=== PATIENT | male | born 1990 | race Caucasian/White ===

== ENCOUNTER 2019-11-06 17:45 | Inpatient (IN) ==
[2019-11-06 18:29] LABS: Basophils # 0.1 K/mcL (0.0-0.2); Basophils % 0.9 %; Eosinophils # 0.3 K/mcL (0.0-0.6); Eosinophils % 4.4 %; Hematocrit 43.1 % (37.5-50.1); Immature Granulocytes % 0.4 % (0-4); Lymphocytes # 2.4 K/mcL (0.6-4.6); Lymphocytes % 42.7 %; Mean Corpuscular HGB Conc 32.5 g/dL (31.6-35.5); Mean Corpuscular Hemoglobin 30.8 pg (28.0-33.3); Mean Corpuscular Volume 94.7 fL (83.0-100.0); Mean Platelet Volume 9.9 fL (9.4-12.4); Monocytes # 0.5 K/mcL (0.0-1.3); Monocytes % 8.4 %; Neutrophils # 2.5 K/mcL (1.6-8.9); Platelet Count 314 K/mcL (140-400); Red Blood Count 4.55 M/mcL (4.19-5.50); Red Cell Distribution Width 12.6 % (11.5-14.5); Segmented Neutrophils % 43.2 %; White Blood Count 5.7 K/mcL (4.3-11.1)
[2019-11-06 18:38] LABS: Bilirubin,Urine Negative (Negative); Blood,Urine Negative (Negative); Clarity,Urine Clear (Clear); Color,Urine Yellow (Yellow); Glucose,Urine (UA) Normal (Normal); Ketones,Urine Negative (Negative); Leukocyte Esterase,Urine Negative (Negative); Nitrite,Urine Negative (Negative); Protein,Urine Negative (Neg-Trace); Specific Gravity,Urine 1.012 (1.010-1.025); Urobilinogen,Urine Normal (Normal)
[2019-11-06 18:49] LABS: Acetaminophen < 10 mcg/mL (10-20); BUN/Creatinine Ratio 14 (6-26); Blood Urea Nitrogen 11 mg/dL (6-20); Calcium 9.3 mg/dL (8.6-10.3); Carbon Dioxide 27 mEq/L (23-29); Chloride 105 mEq/L (98-107); Ethanol < 10 mg/dL (Less than 10); Glucose 59 mg/dL (70-105); Osmolality,Calculated 283 (280-300); Potassium 3.9 mEq/L (3.5-5.1); Salicylate < 2.5 mg/dL (15.0-30.0); Sodium 138 mEq/L (136-145); eGFR For African Americans > 60 (> 60); eGFR For Non-African Americans > 60 (> 60)
[2019-11-06 18:53] LABS: Amphetamine Screen,Urine Negative ng/mL (Cutoff=1000); Barbiturate Screen,Urine Negative ng/mL (Cutoff=200); Benzodiazepines Screen,Urine Negative ng/mL (Cutoff=200); Cannabinoid Screen,Urine Positive ng/mL (Cutoff = 50); Cocaine Screen,Urine Negative ng/mL (Cutoff= 300); Opiate Screen,Urine Negative ng/mL (Cutoff=300); Phencyclidine Screen,Urine Negative ng/mL (Cutoff=25)
[2019-11-06] MEDS ORDERED: Nicotine 14 MG PATCH.TD24 TD ONE (19:00)
[2019-11-06] MEDS ORDERED: *HR* LORazepam 1 MG TABLET PO PRN (21:43)
[2019-11-06] MEDS ORDERED: haloperidoL 5 MG TABLET PO PRN (21:43)
[2019-11-06] MEDS ORDERED: *HR* LORazepam 2 MG/ML VIAL IM PRN (21:43)
[2019-11-06] MEDS ORDERED: Ibuprofen 400 MG TABLET PO PRN (21:43)
[2019-11-06] MEDS ORDERED: Haloperidol Lactate 5 MG/ML VIAL IM PRN (21:43)
[2019-11-06] MEDS ORDERED: Acetaminophen 325 MG TABLET PO PRN (21:43)
[2019-11-06] MEDS ORDERED: Mag Hydrox/Al Hydrox/Simeth 30 ML UDC PO PRN (21:43)
[2019-11-06] MEDS: hydrOXYzine pamoate 25 MG CAPSULE PO PRN (22:44)
[2019-11-06] MEDS: QUEtiapine Fumarate 25 MG TABLET PO PRN (22:50)
[2019-11-07] MEDS ORDERED: Nicotine 21 MG PATCH.TD24 TD SCH (09:00)
[2019-11-07] MEDS: ARIPiprazole 10 MG TABLET PO SCH (10:00)
[2019-11-07] MEDS: Nicotine 2 MG GUM BC PRN ×2 (10:03→16:42)
[2019-11-07 11:06] LABS: Albumin 4.2 g/dL (3.5-5.7); Albumin/Globulin Ratio 1.4 (1.1-2.2); Bilirubin,Direct 0.1 mg/dL (0.0-0.2); Bilirubin,Indirect 0.6 mg/dL (0.0-1.0); Bilirubin,Total 0.7 mg/dL (0.3-1.0); Globulin 3.1 g/dL (2.4-3.5); Total Protein 7.3 g/dL (6.4-8.9)
[2019-11-07] MEDS: hydrOXYzine pamoate 25 MG CAPSULE PO PRN ×2 (16:38→20:48)
[2019-11-07] MEDS: QUEtiapine Fumarate 25 MG TABLET PO PRN (20:48)
[2019-11-08] MEDS: ARIPiprazole 10 MG TABLET PO SCH (09:21)
[2019-11-08 09:28] VITALS: BP 122/79
== END 2019-11-08 13:45 | disposition home or self-care (01) | DRG 753 ==
LOC: 1ANU 17:45 → EMEROOARM 17:45 → 1ANU 22:00
PROVIDERS: ADMIT Psychiatry & Neurology Psychiatry; ATTEND Psychiatry & Neurology Psychiatry